=== PATIENT | male | born 1985 | race American Indian/Alaskan Native ===

== ENCOUNTER 2019-09-05 19:17 | Emergency (ER) | payer SELFPAY ==
--- NOTE | 2019-09-05 20:41 | Event Note ---
ED Screening Note Date of service: 09/05/19 Time: 20:39 ED Screening Note: 34 y o male presents with vomitting, fever, diarhea, chills, pt admits abdominal pain, no sick contants This initial assessment/diagnostic orders/clinical plan/treatment(s) is/are subject to change based on patients health status, clinical progression and re- assessment by fellow clinical providers in the ED. Further treatment and workup at subsequent clinical providers discretion. Patient/guardian urged not to elope from the ED as their condition may be serious if not clinically assessed and managed. Initial orders include: labs, ua,
[2019-09-05 21:00] LABS: Basophils % (Auto) 0.6 % (0.0-1.8); Hematocrit 42.4 % (35.5-45.6); Hemoglobin 13.8 gm/dl (11.8-15.2); Lymphocytes # (Auto) 1.9 K/mm3 (1.2-5.4); Lymphocytes % (Auto) 32.7 % (13.4-35.0); Mean Corpuscular HGB Conc 33 % (32-34); Mean Corpuscular Volume 77 fl (84-94); Monocytes # (Auto) 0.8 K/mm3 (0.0-0.8); Monocytes % (Auto) 13.6 % (0.0-7.3); Red Blood Count 5.49 M/mm3 (3.65-5.03); Red Cell Distribution Width 14.9 % (13.2-15.2)
[2019-09-05 21:01] LABS: Platelet Count 142 K/mm3 (140-440)
[2019-09-05 21:19] LABS: Alanine Aminotransferase 19 units/L (7-56); Albumin 4.1 g/dL (3.9-5); BUN/Creatinine Ratio 13; Blood Urea Nitrogen 13 mg/dL (9-20); Calcium 8.9 mg/dL (8.4-10.2); Hemolysis Index 25
[2019-09-05] MEDS ORDERED: IBUPROFEN 800 MG TAB PO ONE (22:27)
[2019-09-05] MEDS ORDERED: ONDANSETRON 4 MG ODT TAB PO ONE (22:28)
--- NOTE | 2019-09-05 22:31 | Emergency Department Report ---
ED Fever HPI - General Chief Complaint: Nausea/Vomiting/Diarrhea Stated Complaint: VOMITING AND BODY PAIN Time Seen by Provider: 09/05/19 22:25 Source: patient Exam Limitations: no limitations - History of Present Illness Initial Comments: Mr. Herndon is a 34-year-old male with history of asthma who presents with fever vomiting bodyaches diarrhea for the past 2 days. Several sick contacts at his place of employment. 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 Moderately severe symptoms. Denies cough. Timing/Duration: other (2 days) Fever Severity/Quality: subjective Fever Therapy [employer]: none Associated Symptoms: muscle aches, nausea/vomiting, other (diarrhea) ED Review of Systems ROS: Stated complaint: VOMITING AND BODY PAIN Other details as noted in HPI Constitutional: fever, malaise ENT: denies: ear pain, throat pain Respiratory: denies: cough Gastrointestinal: nausea, vomiting, diarrhea. denies: abdominal pain Musculoskeletal: myalgia ED Past Medical Hx - Past Medical History Previous Medical History?: Yes Hx Asthma: Yes - Surgical History Hx Appendectomy: No - Social History Smoking Status: Never Smoker Substance Use Type: None - Medications Home Medications: Home Medications Medication Instructions Recorded Confirmed Last Taken Type traMADoL [Ultram] 50 mg PO Q4HR PRN #15 tablet 12/31/13 Unknown Rx Azithromycin [Zithromax Z-TARAS] 250 mg PO DAILY #6 tablet 01/27/19 Unknown Rx Benzonatate [Tessalon Perle] 100 mg PO Q8H PRN #20 capsule 01/27/19 Unknown Rx Ibuprofen [Motrin] 600 mg PO Q8H PRN #20 tablet 01/27/19 Unknown Rx Prednisone [predniSONE 10 mg 10 mg PO .TAPER #1 tab.ds.pk 01/27/19 Unknown Rx (6-Day Pack, 21 Tabs)] Oseltamivir [Tamiflu] 75 mg PO BID 5 Days #10 cap 09/05/19 Unknown Rx Promethazine [Phenergan] 25 mg PO Q6HR PRN #10 tab 09/05/19 Unknown Rx ED Physical Exam - General Limitations: No Limitations General appearance: alert, in no apparent distress - Head Head exam: Present: atraumatic, normocephalic - Eye Eye exam: Present: conjunctival injection - ENT ENT exam: Present: mucous membranes moist - Neck Neck exam: Present: normal inspection, full ROM - Respiratory Respiratory exam: Present: normal lung sounds bilaterally. Absent: respiratory distress, wheezes, rales, rhonchi - Cardiovascular Cardiovascular Exam: Present: regular rate, normal rhythm, normal heart sounds. Absent: systolic murmur, diastolic murmur, rubs, gallop - GI/Abdominal GI/Abdominal exam: Present: soft, normal bowel sounds. Absent: distended, tenderness, guarding - Rectal Rectal exam: Present: deferred - Extremities Exam Extremities exam: Present: normal inspection - Back Exam Back exam: Present: normal inspection - Neurological Exam Neurological exam: Present: alert, oriented X3 - Psychiatric Psychiatric exam: Present: normal affect, normal mood - Skin Skin exam: Present: warm, dry, intact, normal color. Absent: rash ED Course Vital Signs 09/05/19 19:35 Temperature 98.8 F Pulse Rate 96 H Respiratory 18 Rate Blood Pressure 119/73 O2 Sat by Pulse 94 Oximetry ED Medical Decision Making - Lab Data Result diagrams: 09/05/19 20:42 09/05/19 20:42 Laboratory Results - last 24 hr 09/05/19 09/05/19 09/05/19 20:42 20:42 20:42 WBC 5.9 RBC 5.49 H Hgb 13.8 Hct 42.4 MCV 77 L MCH 25 L MCHC 33 RDW 14.9 Plt Count 142 Lymph % (Auto) 32.7 Collier % (Auto) 13.6 H Eos % (Auto) 0.0 Baso % (Auto) 0.6 Lymph # 1.9 Collier # 0.8 Eos # 0.0 Baso # 0.0 Seg Neutrophils % 53.1 Seg Neutrophils # 3.1 Sodium 135 L Potassium 3.4 L Chloride 97.1 L Carbon Dioxide 22 Anion Gap 19 BUN 13 Creatinine 1.0 Estimated GFR > 60 BUN/Creatinine Ratio 13 Glucose 107 H Calcium 8.9 Total Bilirubin 0.40 AST 33 ALT 19 Alkaline Phosphatase 67 Total Protein 7.9 Albumin 4.1 Albumin/Globulin Ratio 1.1 Lipase 34 Plasma/Serum Alcohol < 0.01 - Medical Decision Making Mr. Herndon has a clinical diagnosis of influenza. Prescribed promethazine and Tamiflu Critical care attestation.: If time is entered above; I have spent that time in minutes in the direct care of this critically ill patient, excluding procedure time. ED Disposition Clinical Impression: Influenza Disposition: DC- TO HOME OR SELFCARE Is pt being admited?: No Does the pt Need Aspirin: No Condition: Stable Instructions: Influenza (ED) Prescriptions: Promethazine [Phenergan] 25 mg PO Q6HR PRN #10 tab PRN Reason: Nausea Oseltamivir [Tamiflu] 75 mg PO BID 5 Days #10 cap Forms: Work/School Release Form(ED)
[2019-09-05 22:40] LABS: Bacteria,Urine 1+ /HPF (Negative); Bilirubin,Urine NEG (Negative); Blood,Urine NEG (Negative); Color,Urine Yellow (Yellow); Hyaline Casts,Urine 2 /LPF; Mucus,Urine 3+ /HPF
[2019-09-06 01:29] VITALS: BP 129/72
== END 2019-09-05 23:55 | disposition home or self-care (01) ==
LOC: ED 19:17
DX: J11.1 Influenza due to unidentified influenza virus with other respiratory manifestations (principal); J45.909 Unspecified asthma, uncomplicated; Z79.899 Other long term (current) drug therapy
CPT/HCPCS: 36415; 80053; 80320; 81001; 83690; 85025; 87086; G0480; Q0162

== ENCOUNTER 2021-07-18 10:15 | Emergency (ER) | payer SELFPAY ==
--- NOTE | 2021-07-18 10:50 | Emergency Department Report ---
ED Asthma HPI - General Chief Complaint: Upper Respiratory Infection Stated Complaint: ASTHMA Time Seen by Provider: 07/18/21 10:43 Source: patient Mode of arrival: Ambulatory Limitations: No Limitations - History of Present Illness Initial Comments: Patient is a 36-year-old male presents emergency room complaints of an exacerbation of his asthma for approximately 2 to 3 days. He states he has had intermittent wheezing, shortness of breath, chest congestion. He states it usually increases at night. 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 He states he has not had an exacerbation in approximately 2 years and he no longer has an inhaler so he reports emergency room in order to get a new inhaler. He denies any productive cough, fever, vomiting, diarrhea, sore throat, ear pain. He denies any known sick contacts or recent travel. No other past medical history. No allergies to medications. - Related Data Previous Rx's Medication Instructions Recorded Last Taken Type traMADoL [Ultram] 50 mg PO Q4HR PRN #15 tablet 12/31/13 Unknown Rx Azithromycin [Zithromax Z-TARAS] 250 mg PO DAILY #6 tablet 01/27/19 Unknown Rx Benzonatate [Tessalon Perle] 100 mg PO Q8H PRN #20 capsule 01/27/19 Unknown Rx Ibuprofen [Motrin] 600 mg PO Q8H PRN #20 tablet 01/27/19 Unknown Rx Prednisone [predniSONE 10 mg 10 mg PO .TAPER #1 tab.ds.pk 01/27/19 Unknown Rx (6-Day Pack, 21 Tabs)] Oseltamivir [Tamiflu] 75 mg PO BID 5 Days #10 cap 09/05/19 Unknown Rx Promethazine [Phenergan] 25 mg PO Q6HR PRN #10 tab 09/05/19 Unknown Rx Albuterol Sulfate [Proventil Hfa] 1 - 2 puff IH TID PRN #1 hfa.aer.ad 07/18/21 Unknown Rx predniSONE [Deltasone] 40 mg PO QDAY 5 Days #10 tab 07/18/21 Unknown Rx Allergies Allergy/AdvReac Type Severity Reaction Status Date / Time No Known Allergies Allergy Verified 01/26/19 19:57 ED Review of Systems ROS: Stated complaint: ASTHMA Other details as noted in HPI Comment: All other systems reviewed and negative ED Past Medical Hx - Past Medical History Previous Medical History?: Yes Hx Asthma: Yes - Surgical History Past Surgical History?: No Hx Appendectomy: No - Social History Smoking Status: Never Smoker Substance Use Type: None - Medications Home Medications: Home Medications Medication Instructions Recorded Confirmed Last Taken Type traMADoL [Ultram] 50 mg PO Q4HR PRN #15 tablet 12/31/13 Unknown Rx Azithromycin [Zithromax Z-TARAS] 250 mg PO DAILY #6 tablet 01/27/19 Unknown Rx Benzonatate [Tessalon Perle] 100 mg PO Q8H PRN #20 capsule 01/27/19 Unknown Rx Ibuprofen [Motrin] 600 mg PO Q8H PRN #20 tablet 01/27/19 Unknown Rx Prednisone [predniSONE 10 mg 10 mg PO .TAPER #1 tab.ds.pk 01/27/19 Unknown Rx (6-Day Pack, 21 Tabs)] Oseltamivir [Tamiflu] 75 mg PO BID 5 Days #10 cap 09/05/19 Unknown Rx Promethazine [Phenergan] 25 mg PO Q6HR PRN #10 tab 09/05/19 Unknown Rx Albuterol Sulfate [Proventil Hfa] 1 - 2 puff IH TID PRN #1 hfa.aer.ad 07/18/21 Unknown Rx predniSONE [Deltasone] 40 mg PO QDAY 5 Days #10 tab 07/18/21 Unknown Rx ED Physical Exam - General Limitations: No Limitations General appearance: alert, in no apparent distress - Head Head exam: Present: atraumatic, normocephalic - Eye Eye exam: Present: normal appearance - ENT ENT exam: Present: mucous membranes moist - Respiratory Respiratory exam: Present: normal lung sounds bilaterally. Absent: respiratory distress, wheezes, rales, rhonchi, stridor, chest wall tenderness, accessory muscle use, decreased breath sounds, prolonged expiratory - Cardiovascular Cardiovascular Exam: Present: regular rate, normal rhythm, normal heart sounds. Absent: systolic murmur, diastolic murmur, rubs, gallop - Neurological Exam Neurological exam: Present: alert, oriented X3 - Psychiatric Psychiatric exam: Present: normal affect, normal mood - Skin Skin exam: Present: warm, dry, intact ED Course Vital Signs 07/18/21 07/18/21 10:41 11:02 Temperature 98.8 F Pulse Rate 65 62 Respiratory 18 16 Rate Blood Pressure 121/65 118/64 [Right] O2 Sat by Pulse 98 99 Oximetry ED Medical Decision Making - Medical Decision Making Patient is a 36-year-old male presents emergency room complaints of an exacerbation of his asthma for approximately 2 to 3 days. He states he has had intermittent wheezing, shortness of breath, chest congestion. He states it usually increases at night. 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 He states he has not had an exacerbation in approximately 2 years and he no longer has an inhaler so he reports emergency room in order to get a new inhaler. He denies any productive cough, fever, vomiting, diarrhea, sore throat, ear pain. He denies any known sick contacts or recent travel. No other past medical history. No allergies to medications. Vitals are normal. On exam breath sounds are clear bilaterally, no wheezing, no rales, no rhonchi. Patient given refill of his albuterol inhaler. No active asthma exacerbation at this time. No clinical signs of bacterial pneumonia or bacterial bronchitis. Patient will be placed on steroids for 5 days given that he has not had any issues with his asthma in 2 years. Patient be referred to primary care doctor for reexamination. Discuss strict return precautions. Advised patient Please take medication as prescribed. Please avoid your asthma triggers. Follow-up with a primary care doctor. Return to emergency room for any new or worsening symptoms. Critical care attestation.: If time is entered above; I have spent that time in minutes in the direct care of this critically ill patient, excluding procedure time. ED Disposition Clinical Impression: Medication refill Asthma Qualifiers: Asthma severity: mild Asthma persistence: intermittent Asthma complication type: uncomplicated Qualified Code(s): J45.20 - Mild intermittent asthma, uncomplicated Disposition: HOME / SELF CARE / HOMELESS Is pt being admited?: No Does the pt Need Aspirin: No Condition: Stable Instructions: Asthma, Adult, Asthma (ED) Additional Instructions: Please take medication as prescribed. Please avoid your asthma triggers. Follow-up with a primary care doctor. Return to emergency room for any new or worsening symptoms. Prescriptions: predniSONE [Deltasone] 40 mg PO QDAY 5 Days #10 tab Albuterol Sulfate [Proventil Hfa] 1 - 2 puff IH TID PRN #1 hfa.aer.ad PRN Reason: shortness of breath/wheezing Referrals: LEANN BORDEN MD [Staff Physician] - 3-5 Days [facility] [Provider Group] - 3-5 Days TRINI EWING MD [Staff Physician] - 3-5 Days Time of Disposition: 10:48 Print Language: TURKISH
[2021-07-18 11:03] VITALS: BP 118/64
== END 2021-07-18 11:03 | disposition home or self-care (01) ==
LOC: ED 10:15
DX: J45.909 Unspecified asthma, uncomplicated (principal); Z76.0 Encounter for issue of repeat prescription
CPT/HCPCS: 99282